=== PATIENT | female | born 1960 | race Hispanic/Latino ===

== ENCOUNTER 2016-06-04 10:58 | Emergency (ER) | payer MEDICARE ==
[2016-06-04 11:47] VITALS: BP 127/55
--- NOTE | 2016-06-04 13:17 | Emergency Department Report ---
ED Extremity Problem HPI - General Chief complaint: Extremity Injury, Upper Stated complaint: POSS BROKEN LT WRIST Time Seen by Provider: 06/04/16 12:50 Source: patient Mode of arrival: Ambulatory Limitations: No Limitations - History of Present Illness Initial comments: PT states last night, she was walking in living room with cane and she was going to pull the long curtains. PT states while she was pulling on curtains, she tripped over shoes that were left on the ground and she fell backwards. PT denies hi, or loc. PT states she is on oxycodone for knee pain currently MD Complaint: extremity pain, joint paint Onset/Timin -: Sudden, days(s) Location: left, upper extremity History of Same: No Severity scale (0 -10): 10 Quality: sharp Consistency: constant Improves with: nothing Worsens with: other (movement ) Associated Symptoms: denies: chest pain, shortness of breath - Related Data Home Medications Medication Instructions Recorded Confirmed Last Taken Buspar 10 mg PO BID 03/12/16 03/12/16 Unknown Depakote 500 mg PO DAILY 03/12/16 03/12/16 Unknown Enalapril Maleate 10 mg PO BID 03/12/16 03/12/16 Unknown Paxil 10 mg PO DAILY 03/12/16 03/12/16 Unknown Xanax TAB 1 mg PO TID 03/12/16 03/12/16 Unknown oxyCODONE TAB 30 mg PO PRN 03/12/16 03/12/16 Unknown Allergies Allergy/AdvReac Type Severity Reaction Status Date / Time aspirin Allergy Nausea Verified 03/12/16 17:45 codeine Allergy Nausea Verified 03/12/16 18:19 ED Review of Systems ROS: Stated complaint: POSS BROKEN LT WRIST Other details as noted in HPI Comment: All other systems reviewed and negative Cardiovascular: denies: chest pain, syncope Musculoskeletal: joint swelling Skin: other (bruising ) ED Past Medical Hx - Past Medical History Hx Hypertension: Yes Hx Congestive Heart Failure: No Hx Diabetes: No Hx Psychiatric Treatment: Yes Hx Asthma: No Hx COPD: No Additional medical history: Mitral valve prolapse - Surgical History Hx Coronary Stent: No Hx Open Heart Surgery: No Hx Pacemaker: No Hx Internal Defibrillator: No Hx Cholecystectomy: No Hx Appendectomy: No Hx Breast Surgery: No Additional Surgical History: Rhinoplasty, 2, tonsillectomy - Social History Smoking Status: Current Every Day Smoker Substance Use Type: None - Medications Home Medications: Home Medications Medication Instructions Recorded Confirmed Last Taken Type Buspar 10 mg PO BID 03/12/16 03/12/16 Unknown History Depakote 500 mg PO DAILY 03/12/16 03/12/16 Unknown History Enalapril Maleate 10 mg PO BID 03/12/16 03/12/16 Unknown History Paxil 10 mg PO DAILY 03/12/16 03/12/16 Unknown History Xanax TAB 1 mg PO TID 03/12/16 03/12/16 Unknown History oxyCODONE TAB 30 mg PO PRN 03/12/16 03/12/16 Unknown History ED Physical Exam - General Limitations: No Limitations General appearance: alert, in no apparent distress - Head Head exam: Present: atraumatic, normocephalic - Eye Eye exam: Present: normal appearance. Absent: conjunctival injection - ENT ENT exam: Present: normal exam - Neck Neck exam: Present: normal inspection, full ROM - Respiratory Respiratory exam: Present: normal lung sounds bilaterally. Absent: respiratory distress - Cardiovascular Cardiovascular Exam: Present: regular rate, normal rhythm - GI/Abdominal GI/Abdominal exam: Present: soft. Absent: tenderness - Extremities Exam Extremities exam: Present: tenderness, normal capillary refill, joint swelling - Expanded Upper Extremity Exam Left Forearm Wrist exam: Present: tenderness, swelling, ecchymosis, other (decreased ROM to L wrist, + edema+ bruising, + tenderness ). Absent: dislocation, tenderness over anatomical snuff box Vascular: Present: radial pulse (+2). Absent: vascular compromise - Back Exam Back exam: Present: full ROM. Absent: tenderness - Neurological Exam Neurological exam: Present: alert, oriented X3 - Psychiatric Psychiatric exam: Present: normal affect, normal mood - Skin Skin exam: Present: warm, dry, ecchymosis ED Course Vital Signs 06/04/16 11:45 Temperature 98.1 F Pulse Rate 77 Respiratory 20 Rate Blood Pressure 127/55 O2 Sat by Pulse 98 Oximetry - Reevaluation(s) Reevaluation #1: 06/04/16 14:31 Nursing staff placed pt in splint. PT NVI. PT aware of dx and plan of care. PT offered RX for Motrin but she declined. PT states she can not take Motrin because it hurts her abd. - Pulse Oximetry Interpretation Digit-Finger Initial Pulse Oximetry Readin Actions Taken: none ED Medical Decision Making - Radiology Data Radiology results: image reviewed interpreted by me: radial fx - Differential Diagnosis fracture, contusion Critical care attestation.: If time is entered above; I have spent that time in minutes in the direct care of this critically ill patient, excluding procedure time. ED Disposition Clinical Impression: Left radial fracture Qualifiers: Encounter type: initial encounter Radius location: distal Fracture type: closed Fracture morphology: unspecified fracture morphology Qualified Code(s): S52.502A - Unspecified fracture of the lower end of left radius, initial encounter for closed fracture Disposition: DISCHARGED TO HOME OR SELFCARE Is pt being admited?: No Does the pt Need Aspirin: No Condition: Stable Instructions: Wrist Fracture in Adults (ED), Splint Care (ED), RICE Therapy (ED ) Referrals: PRIMARY CAREMD [Primary Care Provider] - 3-5 Days JOSELYN TREVINO MD [Staff Physician] - 3-5 Days Time of Disposition: 14:32
--- NOTE | 2016-06-04 13:49 | XRay Report ---
Left wrist 3 views: History: Rule out fracture. Findings: There is a subarticular fracture noted at the distal radius, radial aspect, with extension to the articular margin. The carpal bones appears unremarkable. Severe arthritic changes are noted at the first carpometacarpal joint and the second carpometacarpal joint. Impression: Fracture distal radius.
[2016-06-04] MEDS ORDERED: PERCOCET 5/325 PO ONE (14:09)
== END 2016-06-04 14:37 | disposition home or self-care (01) ==
LOC: ED 10:58
DX: S52.502A Unspecified fracture of the lower end of left radius, initial encounter for closed fracture (principal); I10 Essential (primary) hypertension; F17.200 Nicotine dependence, unspecified, uncomplicated; W01.0XXA Fall on same level from slipping, tripping and stumbling without subsequent striking against object, initial encounter; Y93.9 Activity, unspecified; Y92.9 Unspecified place or not applicable; Y99.9 Unspecified external cause status
CPT/HCPCS: 99283

== ENCOUNTER 2016-08-14 12:46 | Emergency (ER) | payer MEDICARE ==
[2016-08-14 14:17] LABS: Basophils % (Auto) 0.3 % (0.0-1.8); Hematocrit 32.7 % (30.3-42.9); Hemoglobin 11.1 gm/dl (10.1-14.3); Mean Corpuscular HGB Conc 34 % (30-34); Mean Corpuscular Hemoglobin 32 pg (28-32); Mean Corpuscular Volume 93 fl (79-97); Platelet Count 216 K/mm3 (140-440); Red Blood Count 3.53 M/mm3 (3.65-5.03); Red Cell Distribution Width 13.5 % (13.2-15.2); White Blood Count 6.9 K/mm3 (4.5-11.0)
[2016-08-14 14:32] LABS: Alanine Aminotransferase 6 units/L (7-56); Albumin 3.6 g/dL (3.9-5); Albumin/Globulin Ratio 1.3 %; Alkaline Phosphatase 70 units/L (35-129); Anion Gap 16 mmol/L; BUN/Creatinine Ratio 28.57; Blood Urea Nitrogen 20 mg/dL (7-17); Calcium 9.6 mg/dL (8.4-10.2); Carbon Dioxide 30 mmol/L (22-30); Chloride 100.6 mmol/L (98-107); Glucose 80 mg/dL (65-100); Potassium 4.4 mmol/L (3.6-5.0); Sodium 142 mmol/L (137-145); Total Protein 6.3 g/dL (6.3-8.2)
[2016-08-14 20:18] VITALS: BP 111/53
--- NOTE | 2016-08-14 21:02 | Emergency Department Report ---
HPI - General Chief Complaint: Extremity Problem,Nontraumatic Time Seen by Provider: 08/14/16 20:52 - HPI HPI: Room 5 The patient is a 56-year-old female presenting with a chief complaint of bilateral lower extremity edema. The patient states over the past 4 or 5 days she has noticed worsening edema of both lower extremities. Patient denies any preceding trauma. Patient denies any other complaints except for painful swallowing. The patient has had a similar episode in the past but has never been given a diagnosis Location: Bilateral lower extremities Duration: 4-5 days Quality: Pain Severity: Moderate Modifying factors: [see above] Context: [see above] Mode of transportation: Unknown ED Past Medical Hx - Past Medical History Hx Hypertension: Yes (Takes BP meds as needed) Hx Psychiatric Treatment: Yes (Bipolar) Additional medical history: Mitral valve prolapse - Surgical History Additional Surgical History: Rhinoplasty, 2, tonsillectomy - Family History Family history: no significant - Social History Smoking Status: Current Every Day Smoker (one pack per day) Substance Use Type: None - Medications Home Medications: Home Medications Medication Instructions Recorded Confirmed Last Taken Type Buspar 10 mg PO BID 03/12/16 03/12/16 Unknown History Depakote 500 mg PO DAILY 03/12/16 03/12/16 Unknown History Enalapril Maleate 10 mg PO BID 03/12/16 03/12/16 Unknown History Paxil 10 mg PO DAILY 03/12/16 03/12/16 Unknown History Xanax TAB 1 mg PO TID 03/12/16 03/12/16 Unknown History oxyCODONE TAB 30 mg PO PRN 03/12/16 03/12/16 Unknown History Furosemide [Lasix] 20 mg PO QDAY #7 tablet 08/14/16 Unknown Rx HYDROcodone/APAP 5-325 [[place] 1 - 2 each PO Q6HR PRN #7 tablet 08/14/16 Unknown Rx 5/325] ED Review of Systems ROS: Stated complaint: R/L LEG/FOOT/SWELLING PAIN Other details as noted in HPI Comment: All other systems reviewed and negative Constitutional: denies: chills, fever Eyes: denies: eye pain, eye discharge, vision change ENT: denies: ear pain, throat pain Respiratory: denies: cough, shortness of breath, wheezing Cardiovascular: denies: chest pain, palpitations Endocrine: no symptoms reported Gastrointestinal: denies: abdominal pain, nausea, diarrhea Genitourinary: denies: urgency, dysuria, discharge Musculoskeletal: myalgia Skin: denies: rash, lesions Neurological: denies: headache, weakness, paresthesias Psychiatric: denies: anxiety, depression Hematological/Lymphatic: denies: easy bleeding, easy bruising Physical Exam - Physical Exam Vital Signs: Vital Signs 08/14/16 08/14/16 13:13 20:17 Temperature 97.7 F 97.7 F Pulse Rate 74 69 Respiratory 20 20 Rate Blood Pressure 108/60 Blood Pressure 111/53 [Left] O2 Sat by Pulse 100 100 Oximetry Physical Exam: GENERAL: The patient is well-developed well-nourished female lying on stretcher not appearing to be in acute distress. [] HEENT: Normocephalic. Atraumatic. Extraocular motions are intact. Patient has moist mucous membranes. NECK: Supple. Trachea midline CHEST/LUNGS: Clear to auscultation. There is no respiratory distress noted. HEART/CARDIOVASCULAR: Regular. There is no tachycardia. There is no gallop rub or murmur. ABDOMEN: Abdomen is soft, nontender. Patient has normal bowel sounds. There is no abdominal distention. SKIN: There is no rash. There is 2+ bilateral lower extremity edema. There is no diaphoresis. NEURO: The patient is awake, alert, and oriented. The patient is cooperative. The patient has normal speech MUSCULOSKELETAL: There is no evidence of acute injury. ED Course Vital Signs 08/14/16 08/14/16 13:13 20:17 Temperature 97.7 F 97.7 F Pulse Rate 74 69 Respiratory 20 20 Rate Blood Pressure 108/60 Blood Pressure 111/53 [Left] O2 Sat by Pulse 100 100 Oximetry ED Medical Decision Making - Lab Data Result diagrams: 08/14/16 13:51 08/14/16 13:51 Laboratory Tests 08/14/16 08/14/16 13:51 13:51 WBC 6.9 RBC 3.53 L Hgb 11.1 Hct 32.7 MCV 93 MCH 32 MCHC 34 RDW 13.5 Plt Count 216 Lymph % (Auto) 52.9 H Brown % (Auto) 8.9 H Eos % (Auto) 2.0 Baso % (Auto) 0.3 Lymph # 3.6 Brown # 0.6 Eos # 0.1 Baso # 0.0 Seg Neutrophils % 35.9 L Seg Neutrophils # 2.5 Sodium 142 Potassium 4.4 Chloride 100.6 Carbon Dioxide 30 Anion Gap 16 BUN 20 H Creatinine 0.7 Estimated GFR > 60 BUN/Creatinine Ratio 28.57 Glucose 80 Calcium 9.6 Total Bilirubin 0.30 AST 17 ALT 6 L Alkaline Phosphatase 70 NT-Pro-B Natriuret Pep 300.6 Total Protein 6.3 Albumin 3.6 L Albumin/Globulin Ratio 1.3 - Differential Diagnosis peripheral edema, CHF, hypoalbuminemia, renal failure Critical care attestation.: If time is entered above; I have spent that time in minutes in the direct care of this critically ill patient, excluding procedure time. ED Disposition Clinical Impression: Bilateral lower extremity edema, Bilateral leg pain Disposition: DISCHARGED TO HOME OR SELFCARE Is pt being admited?: No Does the pt Need Aspirin: No Condition: Stable Instructions: Leg Edema (ED) Additional Instructions: Return to the emergency department immediately should you develop worsening symptoms, fever, inability to tolerate food or liquid or any other concerns. Prescriptions: Furosemide [Lasix] 20 mg PO QDAY #7 tablet HYDROcodone/APAP 5-325 [[place] 5/325] 1 - 2 each PO Q6HR PRN #7 tablet PRN Reason: Pain Referrals: PRIMARY CARE, [Primary Care Provider] - 3-5 Days UCHE SOSA MD [Staff Physician] - 3-5 Days (Dr. Sosa is a primary physician. Please follow up with her to be established as a patient.) IMAN CASTELLON MD [Staff Physician] - 3-5 Days (Dr. Castellon is a vascular surgeon. Please follow up with him for further evaluation) Time of Disposition: 21:07
== END 2016-08-14 21:46 | disposition home or self-care (01) ==
LOC: ED 12:46
DX: R60.0 Localized edema (principal); M79.605 Pain in left leg; M79.604 Pain in right leg; I10 Essential (primary) hypertension; F31.9 Bipolar disorder, unspecified; Z90.89 Acquired absence of other organs; F17.200 Nicotine dependence, unspecified, uncomplicated
CPT/HCPCS: 36415; 80053; 83880; 85025; 99283

== ENCOUNTER 2018-04-21 18:16 | Emergency (ER) | payer MEDICARE ==
[2018-04-21 18:57] VITALS: BP 145/82
--- NOTE | 2018-04-21 22:37 | Emergency Department Report ---
ED General Adult HPI - General Chief complaint: Extremity Injury, Lower Stated complaint: LEGS PAIN/DIFFICULTY URINATING/SOB Time Seen by Provider: 04/21/18 22:14 Source: patient Mode of arrival: Ambulatory Limitations: No Limitations - History of Present Illness Initial comments: Patient is a 58-year-old female that presents emergency room with complaints of bilateral knee pain. Patient states she's had chronic knee pain for multiple years and is seeing pain management and is taking oxycodone for her pain. Patient states the pain is worsening. Patient states the pain is worsening over the last 4 days. Patient states walking a lot due to her having a special needs child. Patient complains of urinary frequency and dysuria. Patient denies abd ominal pain. Patient denies shortness of breath. Patient denies chest pain. Patient denies nausea vomiting. Patient denies fever or chills. Patient states she wants some more pain medications for her knees. -: Gradual, Sudden Quality: constant, other (chronic knee pain) Consistency: constant Improves with: medication, rest Worsens with: movement Associated Symptoms: denies: confusion, chest pain, cough, diaphoresis, fever/chills, headaches, loss of appetite, malaise, nausea/vomiting, rash, seizure, shortness of breath, syncope, weakness Treatments Prior to Arrival: other (chronic pain meds. ) - Related Data Home Medications Medication Instructions Recorded Confirmed Last Taken Buspar 10 mg PO BID 03/12/16 03/12/16 Unknown Depakote 500 mg PO DAILY 03/12/16 03/12/16 Unknown Enalapril Maleate 10 mg PO BID 03/12/16 03/12/16 Unknown Paxil 10 mg PO DAILY 03/12/16 03/12/16 Unknown Xanax TAB 1 mg PO TID 03/12/16 03/12/16 Unknown oxyCODONE TAB 30 mg PO PRN 03/12/16 03/12/16 Unknown Previous Rx's Medication Instructions Recorded Last Taken Type Furosemide [Lasix] 20 mg PO QDAY #7 tablet 08/14/16 Unknown Rx HYDROcodone/APAP 5-325 [[place] 1 - 2 each PO Q6HR PRN #7 tablet 08/14/16 Unknown Rx 5/325] Ciprofloxacin HCl [Cipro] 500 mg PO BID 10 Days #20 tablet 04/22/18 Unknown Rx Allergies Allergy/AdvReac Type Severity Reaction Status Date / Time aspirin Allergy Nausea Verified 03/12/16 17:45 codeine Allergy Nausea Verified 03/12/16 18:19 ED Review of Systems ROS: Stated complaint: LEGS PAIN/DIFFICULTY URINATING/SOB Other details as noted in HPI Constitutional: denies: chills, fever Eyes: denies: eye pain, eye discharge, vision change ENT: denies: ear pain, throat pain Respiratory: denies: cough, shortness of breath, wheezing Cardiovascular: denies: chest pain, palpitations Endocrine: no symptoms reported Gastrointestinal: denies: abdominal pain, nausea, diarrhea Genitourinary: urgency, dysuria, frequency. denies: discharge Musculoskeletal: denies: back pain, joint swelling, arthralgia Skin: denies: rash, lesions Neurological: denies: headache, weakness, paresthesias Psychiatric: denies: anxiety, depression Hematological/Lymphatic: denies: easy bleeding, easy bruising ED Past Medical Hx - Past Medical History Previous Medical History?: Yes Hx Hypertension: Yes (Takes BP meds as needed) Hx Congestive Heart Failure: No Hx Diabetes: No Hx Psychiatric Treatment: Yes (Bipolar) Hx Asthma: No Hx COPD: No Additional medical history: Mitral valve prolapse. bilateral torn meniscus. acute panic disorder. 2 torn ligaments in right knee - Surgical History Past Surgical History?: Yes Hx Coronary Stent: No Hx Open Heart Surgery: No Hx Pacemaker: No Hx Internal Defibrillator: No Hx Cholecystectomy: No Hx Appendectomy: No Hx Breast Surgery: No Additional Surgical History: Rhinoplasty, 2, tonsillectomy - Family History Family history: no significant - Social History Smoking Status: Current Every Day Smoker Substance Use Type: None - Medications Home Medications: Home Medications Medication Instructions Recorded Confirmed Last Taken Type Buspar 10 mg PO BID 03/12/16 03/12/16 Unknown History Depakote 500 mg PO DAILY 03/12/16 03/12/16 Unknown History Enalapril Maleate 10 mg PO BID 03/12/16 03/12/16 Unknown History Paxil 10 mg PO DAILY 03/12/16 03/12/16 Unknown History Xanax TAB 1 mg PO TID 03/12/16 03/12/16 Unknown History oxyCODONE TAB 30 mg PO PRN 03/12/16 03/12/16 Unknown History Furosemide [Lasix] 20 mg PO QDAY #7 tablet 08/14/16 Unknown Rx HYDROcodone/APAP 5-325 [[place] 1 - 2 each PO Q6HR PRN #7 tablet 08/14/16 Unknown Rx 5/325] Ciprofloxacin HCl [Cipro] 500 mg PO BID 10 Days #20 tablet 04/22/18 Unknown Rx ED Physical Exam - General Limitations: No Limitations General appearance: alert, in no apparent distress, obese - Head Head exam: Present: atraumatic, normocephalic - Eye Eye exam: Present: normal appearance - ENT ENT exam: Present: mucous membranes moist - Neck Neck exam: Present: normal inspection - Respiratory Respiratory exam: Present: normal lung sounds bilaterally. Absent: respiratory distress - Cardiovascular Cardiovascular Exam: Present: regular rate, normal rhythm. Absent: systolic murmur, diastolic murmur, rubs, gallop - GI/Abdominal GI/Abdominal exam: Present: soft, normal bowel sounds. Absent: distended, tenderness, guarding, rebound - Extremities Exam Extremities exam: Present: normal inspection - Back Exam Back exam: Present: normal inspection - Neurological Exam Neurological exam: Present: alert, oriented X3 - Psychiatric Psychiatric exam: Present: normal affect, normal mood - Skin Skin exam: Present: warm, dry, intact, normal color. Absent: rash ED Course Vital Signs 04/21/18 18:48 Temperature 97.5 F L Pulse Rate 75 Respiratory 18 Rate Blood Pressure 145/82 O2 Sat by Pulse 96 Oximetry - Reevaluation(s) Reevaluation #1: Discussed all results with patient. Patient states her pain is better. Patient agrees with discharge planning and plan of care. Patient to be discharged home. Patient stable for discharge. Patient will be given Rocephin and Solu- Medrol for her pain and UTI. Patient will be given antibiotics for fracture. Patient given discharge instructions. Patient given return to ER instructions. Patient given medication instructions. Patient voiced understanding of all instructions. 04/22/18 00:49 ED Medical Decision Making - Medical Decision Making Patient is a 58-year-old female that presents emergency room with chronic knee pain. Patient states her oxycodone is not working and wants more pain medications. Patient given Dilaudid for her knee pain which improved her knee pain. Patient also complained of urinary symptoms and was found to have a UTI. Patient given antibiotics. Patient also given Solu-Medrol to help her knee pain. Patient stable for discharge. Patient discharged home - Differential Diagnosis chronic pain. Knee pain. UTI. Dysuria. Critical care attestation.: If time is entered above; I have spent that time in minutes in the direct care of this critically ill patient, excluding procedure time. ED Disposition Clinical Impression: Chronic knee pain Qualifiers: Laterality: bilateral Qualified Code(s): M25.561 - Pain in right knee UTI (urinary tract infection) Qualifiers: Urinary tract infection type: acute cystitis Hematuria presence: with hematuria Qualified Code(s): N30.01 - Acute cystitis with hematuria HTN (hypertension) Qualifiers: Hypertension type: essential hypertension Qualified Code(s): I10 - Essential (primary) hypertension Disposition: TO HOME OR SELFCARE Is pt being admited?: No Does the pt Need Aspirin: No Condition: Stable Instructions: Urinary Tract Infection in Women (ED), Chronic Pain (ED), Knee Pain (ED), Hypertension (ED) Additional Instructions: Patient to follow up with primary care in 2-3 days. Patient to follow up with pain management in 2 - 3 days. Patient to return to ER if condition worsens. Patient to rest. Patient to continue all medications. Patient's take new medicines as directed. Increase water. Patient's take Tylenol when necessary for pain. Prescriptions: Ciprofloxacin HCl [Cipro] 500 mg PO BID 10 Days #20 tablet Referrals: BRITT BELLAMY MD [Primary Care Provider] - 3-5 Days Time of Disposition: 00:44
[2018-04-21] MEDS ORDERED: DILAUDID IV ONE (23:51)
[2018-04-22 00:25] LABS: Bacteria,Urine 1+ /HPF (Negative); Bilirubin,Urine NEG (Negative); Blood,Urine NEG (Negative); Calcium Oxalate Crystals,Urine FEW; Color,Urine Yellow (Yellow); Mucus,Urine FEW /HPF; Protein,Urine <15 mg/dL mg/dL (Negative)
[2018-04-22] MEDS ORDERED: SOLU-Medrol IV ONE (00:42)
[2018-04-22] MEDS ORDERED: ROCEPHIN/NS 1 GM/50 ML 1 GM/50 ML BAG IV ONE (00:42)
== END 2018-04-22 01:46 | disposition home or self-care (01) ==
LOC: ED 18:16
DX: G89.29 Other chronic pain (principal); M25.562 Pain in left knee; M25.561 Pain in right knee; N39.0 Urinary tract infection, site not specified; I10 Essential (primary) hypertension; F31.9 Bipolar disorder, unspecified; F17.200 Nicotine dependence, unspecified, uncomplicated; Z90.89 Acquired absence of other organs; Z88.6 Allergy status to analgesic agent; Z88.5 Allergy status to narcotic agent
CPT/HCPCS: 81001; 96365; 96375; 99283; J0696; J1170; J2930

== ENCOUNTER 2018-07-03 11:23 | Emergency (ER) | payer MEDICARE ==
[2018-07-03 11:45] VITALS: BP 106/53
--- NOTE | 2018-07-03 11:52 | Emergency Department Report ---
Blank Doc - Documentation Documentation: This is a 58-year-old female that presents with bilateral leg swelling and pain. Denies any trauma. This initial assessment/diagnostic orders/clinical plan/treatment(s) is/are subject to change based on patient's health status, clinical progression and re- assessment by fellow clinical providers in the ED. Further treatment and workup at subsequent clinical providers discretion. Patient/guardians urged not to elope from the ED as their condition may be serious if not clinically assessed and managed. Initial orders include: 1- Patient sent to MAIN ED for further evaluation and treatment 2- labs
[2018-07-03 12:41] LABS: Basophils % (Auto) 0.3 % (0.0-1.8); Eosinophils # (Auto) 0.1 K/mm3 (0.0-0.4); Eosinophils % (Auto) 1.1 % (0.0-4.3); Hemoglobin 12.3 gm/dl (10.1-14.3); Lymphocytes # (Auto) 2.4 K/mm3 (1.2-5.4); Lymphocytes % (Auto) 36.1 % (13.4-35.0); Mean Corpuscular HGB Conc 34 % (30-34); Mean Corpuscular Volume 95 fl (79-97); Monocytes # (Auto) 0.6 K/mm3 (0.0-0.8); Monocytes % (Auto) 8.6 % (0.0-7.3); Platelet Count 159 K/mm3 (140-440)
[2018-07-03 12:57] LABS: BUN/Creatinine Ratio 13; Blood Urea Nitrogen 8 mg/dL (7-17); Hemolysis Index 6
== END 2018-07-03 11:55 | disposition left against medical advice (07) ==
LOC: ED 11:23
DX: M79.605 Pain in left leg (principal); M79.89 Other specified soft tissue disorders; Z53.21 Procedure and treatment not carried out due to patient leaving prior to being seen by health care provider
CPT/HCPCS: 36415; 80048; 82550; 83880; 85025

== ENCOUNTER 2020-10-17 16:33 | Observation (INO) | payer MEDICARE ==
[2020-10-18] MEDS ORDERED: SODIUM CHLORIDE 0.9% 1000 ML 1,000 ML IV ONE (02:32)
--- NOTE | 2020-10-18 02:41 | Emergency Department Report ---
- General Chief complaint: Fall Stated complaint: HIP PAIN, HTN, EYES HURTING PUI?: No Time Seen by Provider: 10/18/20 02:30 Source: patient, EMS Mode of arrival: Wheelchair Limitations: Physical Limitation - History of Present Illness Initial comments: Patient is a 61-year-old female that presents emergency room with complaints of weakness, fall and hypotension. Patient states she also has having hip pain. Patient states is both hips. Patient states that she called EMS because she was feeling so weak and they found her blood pressure to be less than 100. Patient states her blood pressures normally 1 20-1 30 systolic blood pressure. Patient states she is on multiple times in the last several weeks. Patient denies chest pain. Patient denies shortness of breath. Patient states her weakness is generalized. Patient denies hitting her head. Patient denies loss of consciousness. Patient states she was diagnosed many years ago with hypertension but has not required any medications. Patient states she monitors her blood pressure regula rly. Patient denies recent travel. Patient denies recent international travel. Patient denies exposure to the novel coronavirus. Patient denies sick contacts. Patient denies fever and chills. Patient denies cough. Patient denies diarrhea. Patient denies coming in contact with anybody with symptoms of the novel coronavirus. MD Complaint: generalized weakness Severity scale (0 -10): 0 - Related Data Home Medications Medication Instructions Recorded Confirmed Last Taken Buspar 10 mg PO BID 03/12/16 03/12/16 Unknown Depakote 500 mg PO DAILY 03/12/16 03/12/16 Unknown Enalapril Maleate 10 mg PO BID 03/12/16 03/12/16 Unknown Paxil 10 mg PO DAILY 03/12/16 03/12/16 Unknown Xanax TAB 1 mg PO TID 03/12/16 03/12/16 Unknown oxyCODONE TAB 30 mg PO PRN 03/12/16 03/12/16 Unknown Previous Rx's Medication Instructions Recorded Last Taken Type Furosemide [Lasix] 20 mg PO QDAY #7 tablet 08/14/16 Unknown Rx HYDROcodone/APAP 5-325 [[place] 1 - 2 each PO Q6HR PRN #7 tablet 08/14/16 Unknown Rx 5/325] Ciprofloxacin HCl [Cipro] 500 mg PO BID 10 Days #20 tablet 04/22/18 Unknown Rx Allergies Allergy/AdvReac Type Severity Reaction Status Date / Time aspirin Allergy Nausea Verified 03/12/16 17:45 codeine Allergy Nausea Verified 03/12/16 18:19 ED Review of Systems ROS: Stated complaint: HIP PAIN, HTN, EYES HURTING Other details as noted in HPI Constitutional: denies: chills, fever Eyes: denies: eye pain, eye discharge, vision change ENT: denies: ear pain, throat pain Respiratory: denies: cough, shortness of breath, wheezing Cardiovascular: denies: chest pain, palpitations Endocrine: no symptoms reported Gastrointestinal: denies: abdominal pain, nausea, diarrhea Genitourinary: denies: urgency, dysuria, discharge Musculoskeletal: denies: back pain, joint swelling, arthralgia Skin: denies: rash, lesions Neurological: denies: headache, weakness, paresthesias Psychiatric: denies: anxiety, depression Hematological/Lymphatic: denies: easy bleeding, easy bruising ED Past Medical Hx - Past Medical History Previous Medical History?: Yes Hx Hypertension: Yes (Takes BP meds as needed) Hx Congestive Heart Failure: No Hx Diabetes: No Hx Psychiatric Treatment: Yes (Bipolar) Hx Asthma: No Hx COPD: No Additional medical history: Mitral valve prolapse. bilateral torn meniscus. acute panic disorder. 2 torn ligaments in right knee - Surgical History Past Surgical History?: Yes Hx Coronary Stent: No Hx Open Heart Surgery: No Hx Pacemaker: No Hx Internal Defibrillator: No Hx Cholecystectomy: No Hx Appendectomy: No Hx Breast Surgery: No Additional Surgical History: Rhinoplasty, 2, tonsillectomy - Family History Family history: no significant - Social History Smoking Status: Current Every Day Smoker Substance Use Type: None - Medications Home Medications: Home Medications Medication Instructions Recorded Confirmed Last Taken Type Buspar 10 mg PO BID 03/12/16 03/12/16 Unknown History Depakote 500 mg PO DAILY 03/12/16 03/12/16 Unknown History Enalapril Maleate 10 mg PO BID 03/12/16 03/12/16 Unknown History Paxil 10 mg PO DAILY 03/12/16 03/12/16 Unknown History Xanax TAB 1 mg PO TID 03/12/16 03/12/16 Unknown History oxyCODONE TAB 30 mg PO PRN 03/12/16 03/12/16 Unknown History Furosemide [Lasix] 20 mg PO QDAY #7 tablet 08/14/16 Unknown Rx HYDROcodone/APAP 5-325 [[place] 1 - 2 each PO Q6HR PRN #7 tablet 08/14/16 Unknown Rx 5/325] Ciprofloxacin HCl [Cipro] 500 mg PO BID 10 Days #20 tablet 04/22/18 Unknown Rx ED Physical Exam - General Limitations: Physical Limitation - Assessment Assessment Interval: Baseline - Level of Consciousness 1a. Level of Consciousness: alert/keenly responsive - LOC Questions 1b. LOC Questions: answers both correctly - LOC Command 1c. LOC Commands: performs tasks correctly - Best Gaze 2. Best Gaze: normal - Visual 3. Visual: no visual loss - Facial Palsy 4. Facial Palsy: normal symmetrical movement - Motor Arm 5a. Motor Arm Left: no drift 5b. Motor Arm Right: no drift - Motor Leg 6a. Motor Leg Left: no drift 6b. Motor Leg Right: no drift - Limb Ataxia 7. Limb Ataxia: absent - Sensory 8. Sensory: normal - Best Language 9. Best Language: no aphasia - Dysarthria 10. Dysarthria: normal - Extinction and Inattention 11. Extinction/Inattention: no abnormality - Scoring Total Score: 0 Stroke Severity: No Stroke Symptoms ED Course Vital Signs 10/17/20 10/18/20 17:52 02:09 Temperature 98.0 F 98.1 F Pulse Rate 74 71 Respiratory 18 12 Rate Blood Pressure 94/57 96/36 [Right] O2 Sat by Pulse 95 98 Oximetry - Reevaluation(s) Reevaluation #1: I discussed all results with patient. I discussed plan of care with patient. Patient agrees with plan of care and admission. Patient to be admitted to the hospitalist service. 10/18/20 04:06 - Consultations Consultation #1: Hospitalist consulted for admission. Hospitalist to admit patient. 10/18/20 04:06 ED Medical Decision Making - Lab Data Result diagrams: 10/18/20 02:39 10/18/20 02:39 - EKG Data -: EKG Interpreted by Me EKG shows normal: sinus rhythm, axis, intervals, QRS complexes, ST-T waves Rate: normal - Radiology Data Radiology results: report reviewed, image reviewed interpreted by me: Bilateral hip x-ray: No fracture, no acute findings. Head CT results reviewed. No acute findings - Medical Decision Making Patient is a 60-year-old female presents emergency room with low blood pressure and weakness and falls. Patient complained of hip pain. Patient had a hip x- ray negative for acute finding. Patient had a head CT for the weakness and head CT was negative for acute finding. Patient EKG which was negative for acute findings. Patient had labs done which were essentially unremarkable. Patient given IV fluids and her blood pressure improved. Patient admitted to the hospital service for further evaluation treatment. Critical care time documented due to the multiple reassessments, prolonged time at the bedside, interpretation of diagnostics and labs. - Differential Diagnosis Weakness, fall, hypotension, dehydration Critical Care Time: Yes Critical care time in (mins) excluding proc time.: 35 Critical care attestation.: If time is entered above; I have spent that time in minutes in the direct care of this critically ill patient, excluding procedure time. Critical Care Time: 35 minutes ED Disposition Clinical Impression: Weakness, Bilateral hip pain Hypotension Qualifiers: Hypotension type: unspecified hypotension type Qualified Code(s): I95.9 - Hypotension, unspecified Falls Qualifiers: Encounter type: initial encounter Qualified Code(s): W19.XXXA - Unspecified fall, initial encounter Disposition: -09 OP ADMIT IP TO THIS HOSP Is pt being admited?: Yes Does the pt Need Aspirin: No Condition: Critical Time of Disposition: 04:12
[2020-10-18 03:33] LABS: Hematocrit 36.2 % (30.3-42.9); Hemoglobin 12.3 gm/dl (10.1-14.3); Mean Corpuscular HGB Conc 34 % (30-34); Mean Corpuscular Volume 95 fl (79-97); Platelet Count 148 K/mm3 (140-440); Red Blood Count 3.81 M/mm3 (3.65-5.03); Red Cell Distribution Width 13.2 % (13.2-15.2)
--- NOTE | 2020-10-18 03:36 | XRay Report ---
BILATERAL HIPS 5 VIEWS INDICATION / CLINICAL INFORMATION: Bilateral hip pain after fall. COMPARISON: None available. FINDINGS: BONES and JOINT(S): No acute fracture or subluxation. 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 SOFT TISSUES: No significant abnormality. ADDITIONAL FINDINGS: None. IMPRESSION: 1. No acute findings. Signer Name: Ronni Love MD Signed: 10/18/2020 3:31 AM Workstation Name: [id number]
--- NOTE | 2020-10-18 03:47 | Cat Scan Report ---
CT HEAD WITHOUT CONTRAST INDICATION : Pt complains of weakness. TECHNIQUE: Axial, coronal and sagittal CT imaging was performed from the skull apex through the skul l base without contrast. All CT scans at this location are performed using CT dose reduction for ALA RA by means of automated exposure control. COMPARISON: CT head without contrast from 03/12/2016. FINDINGS: PARENCHYMA: No mass, midline shift, hemorrhage, extraaxial collection or acute territorial infarctio n. There is generalized atrophy. VENTRICLES: Symmetric and normal in size. SOFT TISSUES: No significant abnormality of the included soft tissues/orbits. BONES: No acute osseous abnormality. SINUSES: There is a small air-fluid level along the left maxillary sinus with mild mucosal thickening . No other significant abnormality. ADDITIONAL FINDINGS: None. IMPRESSION: 1. No acute intracranial abnormality. 2. Left maxillary sinusitis with additional findings as above. Signer Name: Ronni Love MD Signed: 10/18/2020 3:43 AM Workstation Name: [id number]
[2020-10-18 03:51] LABS: Alanine Aminotransferase 11 units/L (7-56); Albumin 3.8 g/dL (3.9-5); BUN/Creatinine Ratio 19; Blood Urea Nitrogen 15 mg/dL (7-17); Calcium 9.9 mg/dL (8.4-10.2); Hemolysis Index 5
[2020-10-18] MEDS ORDERED: HYDROcodone/ACETAMINOPHEN 5-325 MG TAB PO PRN (04:53)
[2020-10-18] MEDS ORDERED: ACETAMINOPHEN 325 MG TAB PO PRN (04:53)
[2020-10-18] MEDS ORDERED: METOCLOPRAMIDE 10 MG/2 ML INJ IV PRN (04:53)
[2020-10-18] MEDS ORDERED: ALUM-MAG HYDROXIDE-SIMETHICONE 200-200-20MG/5ML ORAL LIQD 30 ML PO PRN (04:53)
[2020-10-18] MEDS ORDERED: PROMETHAZINE 25 MG RECT SUPP PR PRN (04:53)
[2020-10-18] MEDS ORDERED: MAGNESIUM HYDROXIDE (MOM) ORAL LIQD UDC PO PRN (04:53)
[2020-10-18] MEDS ORDERED: ONDANSETRON 4 MG/2 ML INJ IV PRN (04:53)
[2020-10-18] MEDS ORDERED: NALOXONE 0.4 MG/1 ML INJ IV PRN (04:53)
[2020-10-18] MEDS ORDERED: SODIUM CHLORIDE 0.9% 1000 ML 1,000 ML IV SCH (05:00)
--- NOTE | 2020-10-18 05:01 | History and Physical Report ---
History of Present Illness Date of examination: 10/18/20 Date of admission: 10/18/20 04:12 Chief complaint: 10/18/20 History of present illness: Patient is a 61-year-old female that presents emergency room with complaints of weakness, fall and hypotension. Patient states she also has having hip pain. Patient states is both hips. Patient states that she called EMS because she was feeling so weak and they found her blood pressure to be less than 100. Patient states her blood pressures normally 1 20-1 30 systolic blood pressure. Patient states she is on multiple times in the last several weeks. Patient denies chest pain. Patient denies shortness of breath. Patient states her weakness is generalized. Patient denies hitting her head. Patient denies loss of consciousness. ED work-up shows WBC 5.9, hemoglobin 12.3, platelet 13.2, sodium 141, potassium 3.9, creatinine 0.8, serum glucose 120, serum protein 6.0. CT of the head showed no acute finding patient seen in ED alert oriented x3 patient reported history of dizziness weakness and fall. Patient admits to tobacco use but denies alcohol and drug use. Reviewed patient medical record vital signs and lab work results. Patient came with low blood pressure we will start IV hydration order echo and consulted sales promotion officer. Past History Past Medical History: hyperlipidemia, renal failure Past Surgical History: No surgical history Social history: no significant social history, lives with family, smoking Family history: no significant family history Medications and Allergies Allergies Allergy/AdvReac Type Severity Reaction Status Date / Time aspirin Allergy Nausea Verified 03/12/16 17:45 codeine Allergy Nausea Verified 03/12/16 18:19 Home Medications Medication Instructions Recorded Confirmed Last Taken Type Buspar 10 mg PO BID 03/12/16 03/12/16 Unknown History Depakote 500 mg PO DAILY 03/12/16 03/12/16 Unknown History Enalapril Maleate 10 mg PO BID 03/12/16 03/12/16 Unknown History Paxil 10 mg PO DAILY 03/12/16 03/12/16 Unknown History Xanax TAB 1 mg PO TID 03/12/16 03/12/16 Unknown History oxyCODONE TAB 30 mg PO PRN 03/12/16 03/12/16 Unknown History Furosemide [Lasix] 20 mg PO QDAY #7 tablet 08/14/16 Unknown Rx HYDROcodone/APAP 5-325 [[place] 1 - 2 each PO Q6HR PRN #7 tablet 08/14/16 Unknown Rx 5/325] Ciprofloxacin HCl [Cipro] 500 mg PO BID 10 Days #20 tablet 04/22/18 Unknown Rx Review of Systems Constitutional: fatigue, weakness Ears, nose, mouth and throat: vertigo Cardiovascular: syncope Respiratory: no wheezing Gastrointestinal: no melena Musculoskeletal: muscle weakness Neurological: weakness, no change in mentation, no confusion Psychiatric: no suicidal ideation, no disorientation Endocrine: no proptosis Hematologic/Lymphatic: no easy bruising, no easy bleeding Exam - Constitutional Vitals: Temp Pulse Resp BP Pulse Ox 98.1 F 65 18 96/36 92 10/18/20 02:09 10/18/20 03:00 10/18/20 03:00 10/18/20 03:00 10/18/20 03:00 General appearance: Present: no acute distress, obese - EENT Eyes: Present: PERRL ENT: hearing intact, clear oral mucosa - Neck Neck: Present: supple, normal ROM - Respiratory Respiratory effort: normal Respiratory: bilateral: CTA - Cardiovascular Heart Sounds: Present: S1 & S2. Absent: rub, click - Extremities Extremities: pulses symmetrical, No edema Peripheral Pulses: within normal limits - Abdominal General gastrointestinal: Present: soft, non-tender, non-distended, normal bowel sounds Female genitourinary: Present: normal - Integumentary Integumentary: Present: clear, warm, dry - Musculoskeletal Musculoskeletal: gait normal, strength equal bilaterally - Psychiatric Psychiatric: appropriate mood/affect, intact judgment & insight - Neurologic Neurologic: CNII-XII intact, moves all extremities - Allied Health Allied health notes reviewed: nursing Results - Labs CBC & Chem 7: 10/18/20 02:39 10/18/20 02:39 Labs: Abnormal lab results 10/18/20 Range/Units 02:39 Glucose 120 H (65-100) mg/dL Total Protein 6.0 L (6.3-8.2) g/dL Albumin 3.8 L (3.9-5) g/dL Assessment and Plan - Patient Problems (1) Hypotension Current Visit: Yes Status: Acute Qualifiers: Hypotension type: unspecified hypotension type Qualified Code(s): I95.9 - Hypotension, unspecified Plan to address problem: Likely secondary to dehydration Patient is on Lasix at home Continue to hold diuretic and bp med Cell Room Supervisor consult (2) Falls Current Visit: Yes Status: Acute Qualifiers: Encounter type: initial encounter Qualified Code(s): W19.XXXA - Unspecified fall, initial encounter Plan to address problem: Safety and fall precaution at all times CT of the head negative for acute finding (3) Weakness Current Visit: Yes Status: Acute Plan to address problem: IV hydration PT/Ot consult ECHO -f/u with result (4) Tobacco use Current Visit: Yes Status: Acute Plan to address problem: Discussed tobacco use cessation Cardiovascular and neoplasm syndrome of tobacco explained to patient Patient voiced understanding (5) DVT prophylaxis Current Visit: Yes Status: Acute Plan to address problem: Subcutaneous Lovenox (6) Full code status Current Visit: Yes Status: Acute Plan to address problem: Patient is full code
--- NOTE | 2020-10-18 09:10 | Consultation ---
History of Present Illness Consult date: 10/18/20 History of present illness: 60F with PMHx of tobacco abuse presents with complaint of weakness, fall, and low BP (reportedly less than 100). She denies any loss of consciousness. No CP or SOB. She was recently started on a new psych med on Tuesday, but she does not recall the name of the med. Initial recorded BP 96/36. Workup showed troponin x 1 negative, BNP normal, and no ischemic changes on EKG. Past History Past Medical History: hyperlipidemia, renal failure Past Surgical History: No surgical history Social history: no significant social history, lives with family, smoking Family history: no significant family history Medications and Allergies Allergies Allergy/AdvReac Type Severity Reaction Status Date / Time aspirin Allergy Nausea Verified 03/12/16 17:45 codeine Allergy Nausea Verified 03/12/16 18:19 Home Medications Medication Instructions Recorded Confirmed Last Taken Type Buspar 10 mg PO BID 03/12/16 03/12/16 Unknown History Depakote 500 mg PO DAILY 03/12/16 03/12/16 Unknown History Enalapril Maleate 10 mg PO BID 03/12/16 03/12/16 Unknown History Paxil 10 mg PO DAILY 03/12/16 03/12/16 Unknown History Xanax TAB 1 mg PO TID 03/12/16 03/12/16 Unknown History oxyCODONE TAB 30 mg PO PRN 03/12/16 03/12/16 Unknown History Furosemide [Lasix] 20 mg PO QDAY #7 tablet 08/14/16 Unknown Rx HYDROcodone/APAP 5-325 [[place] 1 - 2 each PO Q6HR PRN #7 tablet 08/14/16 Unknown Rx 5/325] Ciprofloxacin HCl [Cipro] 500 mg PO BID 10 Days #20 tablet 04/22/18 Unknown Rx Active Meds: Active Medications Acetaminophen (Acetaminophen 325 Mg Tab) 650 mg PO Q4H PRN PRN Reason: Pain MILD(1-3)/Fever >100.5/SEPULVEDA Al Hydrox/Mg Hydrox/Simethicone (Alum-Mag Hydroxide-Simethicone [id number]/5ml Oral Liqd 30 Ml) 30 ml PO Q4H PRN PRN Reason: Indigestion Buspirone HCl (Buspirone 10 Mg Tab) 10 mg PO BID NARCISO Divalproex Sodium (Divalproex Dr 500 Mg Tab) 500 mg PO DAILY NARCISO Enoxaparin Sodium (Enoxaparin 40 Mg/0.4 Ml Inj) 40 mg SUB-Q DAILY NARCISO; Protocol Famotidine (Famotidine 20 Mg/2 Ml Inj) 20 mg IV BID NARCISO Sodium Chloride (Nacl 0.9% 1000 Ml) 1,000 mls @ 75 mls/hr IV DIRECT NARCISO Magnesium Hydroxide (Magnesium Hydroxide (Mom) Oral Liqd Udc) 30 ml PO Q4H PRN PRN Reason: Constipation Metoclopramide HCl (Metoclopramide 10 Mg/2 Ml Inj) 10 mg IV Q6H PRN PRN Reason: Nausea And Vomiting Naloxone HCl (Naloxone 0.4 Mg/1 Ml Inj) 0.1 mg IV Q2MIN PRN PRN Reason: Res Rate </= 8 or 02 SAT < 92% Ondansetron HCl (Ondansetron 4 Mg/2 Ml Inj) 4 mg IV Q8H PRN PRN Reason: Nausea And Vomiting Promethazine HCl (Promethazine 25 Mg Rect Supp) 25 mg MN Q6H PRN PRN Reason: N/V IF NPO AND NO IV ACCESS Sodium Chloride (Sodium Chloride 0.9% 10 Ml Flush Syringe) 10 ml IV PRN PRN PRN Reason: LINE FLUSH Physical Examination Vital Signs Temp Pulse Resp BP Pulse Ox 98.0 F 74 18 94/57 95 10/17/20 17:52 10/17/20 17:52 10/17/20 17:52 10/17/20 17:52 10/17/20 17:52 Gen - NAD, comfortable HEENT- atraumatic, normocephalic Neck - supple, no JVD CV - RRR, no murmurs, no edema Lungs - CTAB Abd - soft/nt/nd, obese Ext - warm to touch, trace edema Skin - no rash Results 10/18/20 02:39 10/18/20 02:39 Cardiac Enzymes 10/18/20 Range/Units 02:39 AST 18 (5-40) units/L CBC 10/18/20 Range/Units 02:39 WBC 5.9 (4.5-11.0) K/mm3 RBC 3.81 (3.65-5.03) M/mm3 Hgb 12.3 (10.1-14.3) gm/dl Hct 36.2 (30.3-42.9) % Plt Count 148 (140-440) K/mm3 Comprehensive Metabolic Panel 10/18/20 Range/Units 02:39 Sodium 141 (137-145) mmol/L Potassium 3.9 (3.6-5.0) mmol/L Chloride 101.7 (98-107) mmol/L Carbon Dioxide 28 (22-30) mmol/L BUN 15 (7-17) mg/dL Creatinine 0.8 (0.6-1.2) mg/dL Glucose 120 H (65-100) mg/dL Calcium 9.9 (8.4-10.2) mg/dL AST 18 (5-40) units/L ALT 11 (7-56) units/L Alkaline Phosphatase 84 (35-129) units/L Total Protein 6.0 L (6.3-8.2) g/dL Albumin 3.8 L (3.9-5) g/dL Telemetry - SR, no events EKG - SR, no ischemic changes Assessment and Plan #Weakness #Hypotension - BP now improved #Fall - no LOC #Tobacco abuse #Obesity -Check orthostatics. -Agree with IVF hydration. Avoid sedating meds. Agree with holding lasix and BP meds. -Check echo. -Further cardiac workup pending echo findings. -Encourage smoking cessation.
[2020-10-18] MEDS ORDERED: HEPARIN 5,000 UNIT/1 ML VIAL SUB-Q SCH (10:00)
[2020-10-18] MEDS: busPIRone 10 MG TAB PO SCH ×2 (10:43→21:33)
[2020-10-18] MEDS: DIVALPROEX DR 500 MG TAB PO SCH (10:43)
[2020-10-18] MEDS: ENOXAPARIN 40 MG/0.4 ML INJ SUB-Q SCH (10:44)
[2020-10-18] MEDS: FAMOTIDINE 20 MG/2 ML INJ IV SCH ×2 (10:44→21:34)
--- NOTE | 2020-10-18 11:14 | Progress Note ---
Assessment and Plan Assessment and plan: 60F with PMHx of tobacco abuse admitted with diagnosis of generalized weakness, fall, and hypotension (reportedly less than 100). She denied any loss of consciousness. No CP or SOB. She was recently started on a new psych med on Tuesday, but she does not recall the name of the med. Initial recorded BP 96/36. Workup showed troponin negative, BNP normal, and no ischemic changes on EKG. Patient had orthostatic vital signs completed on 10/18/2020 that were normal. Cardiology saw the patient in consultation and recommended echocardiogram. Patient received IV fluid hydration and blood pressure stabilized. Generalized weakness Hypotension S/p fall. No LOC Tobacco abuse Obese 10/18/2020. Continue IV fluid hydration and follow-up BMP in a.m. Also, follow- up echocardiogram. Anticipate discharge in a.m. if blood pressure remains stable. History Interval history: No new issues overnight. Hospitalist Physical - Constitutional Vitals: Temp Pulse Resp BP Pulse Ox 97.3 F L 64 19 108/54 91 10/18/20 07:28 10/18/20 07:28 10/18/20 07:28 10/18/20 07:28 10/18/20 07:28 General appearance: Present: no acute distress, obese - EENT Eyes: Present: PERRL, EOM intact ENT: hearing intact, clear oral mucosa, dentition normal - Neck Neck: Present: supple, normal ROM - Respiratory Respiratory effort: normal Respiratory: bilateral: CTA - Cardiovascular Rhythm: regular Heart Sounds: Present: S1 & S2. Absent: gallop, rub - Extremities Extremities: no ischemia, No edema, Full ROM - Abdominal General gastrointestinal: soft, non-tender, non-distended, normal bowel sounds - Integumentary Integumentary: Present: clear, warm, dry - Neurologic Neurologic: CNII-XII intact, moves all extremities Results - Labs CBC & Chem 7: 10/18/20 02:39 10/18/20 02:39 Labs: Laboratory Last Values WBC 5.9 K/mm3 (4.5-11.0) 10/18/20 02:39 RBC 3.81 M/mm3 (3.65-5.03) 10/18/20 02:39 Hgb 12.3 gm/dl (10.1-14.3) 10/18/20 02:39 Hct 36.2 % (30.3-42.9) 10/18/20 02:39 MCV 95 fl (79-97) 10/18/20 02:39 MCH 32 pg (28-32) 10/18/20 02:39 MCHC 34 % (30-34) 10/18/20 02:39 RDW 13.2 % (13.2-15.2) 10/18/20 02:39 Plt Count 148 K/mm3 (140-440) 10/18/20 02:39 Sodium 141 mmol/L (137-145) 10/18/20 02:39 Potassium 3.9 mmol/L (3.6-5.0) 10/18/20 02:39 Chloride 101.7 mmol/L (98-107) 10/18/20 02:39 Carbon Dioxide 28 mmol/L (22-30) 10/18/20 02:39 Anion Gap 15 mmol/L 10/18/20 02:39 BUN 15 mg/dL (7-17) 10/18/20 02:39 Creatinine 0.8 mg/dL (0.6-1.2) 10/18/20 02:39 Estimated GFR > 60 ml/min 10/18/20 02:39 BUN/Creatinine Ratio 19 % 10/18/20 02:39 Glucose 120 mg/dL (65-100) H 10/18/20 02:39 Hemoglobin A1c 5.5 % (4-6) 10/18/20 02:39 Calcium 9.9 mg/dL (8.4-10.2) 10/18/20 02:39 Total Bilirubin 0.30 mg/dL (0.1-1.2) 10/18/20 02:39 AST 18 units/L (5-40) 10/18/20 02:39 ALT 11 units/L (7-56) 10/18/20 02:39 Alkaline Phosphatase 84 units/L (35-129) 10/18/20 02:39 Total Protein 6.0 g/dL (6.3-8.2) L 10/18/20 02:39 Albumin 3.8 g/dL (3.9-5) L 10/18/20 02:39 Albumin/Globulin Ratio 1.7 % 10/18/20 02:39 Anguiano/IV: Voiding Method Toilet Active Medications - Current Medications Current Medications: Generic Name Dose Route Start Last Admin Trade Name Freq PRN Reason Stop Dose Admin Acetaminophen 650 mg 10/18/20 04:53 Acetaminophen 325 Mg Tab PO Q4H PRN Pain MILD(1-3)/Fever >100.5/SEPULVEDA Al Hydrox/Mg Hydrox/Simethicone 30 ml 10/18/20 04:53 Alum-Mag Hydroxide-Simethicone [id number]/5ml Oral Liqd 30 Ml PO Q4H PRN Indigestion Buspirone HCl 10 mg 10/18/20 10:00 10/18/20 10:43 Buspirone 10 Mg Tab PO 10 mg BID NARCISO Administration Divalproex Sodium 500 mg 10/18/20 10:00 10/18/20 10:[address] 500 Mg Tab PO 500 mg DAILY NARCISO Administration Enoxaparin Sodium 40 mg 10/18/20 10:00 10/18/20 10:44 Enoxaparin 40 Mg/0.4 Ml Inj SUB-Q 40 mg DAILY NARCISO Administration Protocol Famotidine 20 mg 10/18/20 10:00 10/18/20 10:44 Famotidine 20 Mg/2 Ml Inj IV 20 mg BID NARCISO Administration Sodium Chloride 1,000 mls @ 75 mls/hr 10/18/20 05:00 Nacl 0.9% 1000 Ml IV DIRECT NARCISO Magnesium Hydroxide 30 ml 10/18/20 04:53 Magnesium Hydroxide (Mom) Oral Liqd Udc PO Q4H PRN Constipation Metoclopramide HCl 10 mg 10/18/20 04:53 Metoclopramide 10 Mg/2 Ml Inj IV Q6H PRN Nausea And Vomiting Naloxone HCl 0.1 mg 10/18/20 04:53 Naloxone 0.4 Mg/1 Ml Inj IV Q2MIN PRN Res Rate </= 8 or 02 SAT < 92% Ondansetron HCl 4 mg 10/18/20 04:53 Ondansetron 4 Mg/2 Ml Inj IV Q8H PRN Nausea And Vomiting Promethazine HCl 25 mg 10/18/20 04:53 Promethazine 25 Mg Rect Supp PA Q6H PRN N/V IF NPO AND NO IV ACCESS Sodium Chloride 10 ml 10/18/20 04:53 Sodium Chloride 0.9% 10 Ml Flush Syringe IV PRN PRN LINE FLUSH
[2020-10-19 06:01] LABS: Hematocrit 34.1 % (30.3-42.9); Hemoglobin 11.7 gm/dl (10.1-14.3); Mean Corpuscular HGB Conc 34 % (30-34); Mean Corpuscular Volume 94 fl (79-97); Platelet Count 148 K/mm3 (140-440); Red Blood Count 3.61 M/mm3 (3.65-5.03); Red Cell Distribution Width 13.1 % (13.2-15.2)
[2020-10-19 06:11] LABS: Alanine Aminotransferase 9 units/L (7-56); Albumin 3.4 g/dL (3.9-5); Blood Urea Nitrogen 8 mg/dL (7-17); Calcium 9.9 mg/dL (8.4-10.2); Hemolysis Index 3
[2020-10-19 06:12] LABS: BUN/Creatinine Ratio 13
[2020-10-19 06:45] LABS: Anisocytosis 1+; Total Cells Counted 100
[2020-10-19 06:46] LABS: Platelet Estimate Consistent w Auto
[2020-10-19 08:36] VITALS: BP 132/71
--- NOTE | 2020-10-19 09:16 | Discharge Summary ---
Providers - Providers Date of Admission: 10/18/20 04:12 Date of discharge: 10/19/20 Attending physician: DENNIS WALKER 10/18/20 04:53 Consult to Physician [CONS] Routine Comment: Consulting Provider: OPAL SOSA Physician Instructions: Reason For Exam: hypotension 10/18/20 05:50 Occupational Therapy Evaluate and Treat [CONS] Routine Comment: Reason For Exam: weakness Physical Therapy Evaluation and Treat [CONS] Routine Comment: Reason For Exam: weakness Primary care physician: CARLOS KAUFFMAN Hospitalization Reason for admission: Hypotension Condition: Critical Hospital course: 60F with PMHx of tobacco abuse admitted with diagnosis of generalized weakness, fall, and hypotension (reportedly less than 100). She denied any loss of consciousness. No CP or SOB. She was recently started on a new psych med on Tuesday, but she does not recall the name of the med. Initial recorded BP 96/36. Workup showed troponin negative, BNP normal, and no ischemic changes on EKG. Patient had orthostatic vital signs completed on 10/18/2020 that were normal. Cardiology saw the patient in consultation and recommended echocardiogram. Patient received IV fluid hydration and blood pressure stabilized. Blood pressure has remained stable. Patient wants to go home and therefore will complete echocardiogram as an outpatient. Dedicated discharge time 35 minutes. Disposition: DC- TO HOME OR SELFCARE Final Discharge Diagnosis (Prints w/discharge instructions): Generalized weakness, hypotension, tobacco abuse, obesity Core Measure Documentation - Palliative Care Palliative Care/ Comfort Measures: Not Applicable - Core Measures Any of the following diagnoses?: none Exam - Constitutional Vitals: Temp Pulse Resp BP Pulse Ox 97.4 F L 68 18 132/71 94 10/19/20 08:00 10/19/20 08:00 10/19/20 08:00 10/19/20 08:00 10/19/20 08:00 General appearance: Present: no acute distress, well-nourished - EENT Eyes: Present: PERRL ENT: hearing intact, clear oral mucosa - Neck Neck: Present: supple, normal ROM - Respiratory Respiratory effort: normal Respiratory: bilateral: CTA - Cardiovascular Heart Sounds: Present: S1 & S2. Absent: rub, click - Extremities Extremities: pulses symmetrical, No edema Peripheral Pulses: within normal limits - Abdominal General gastrointestinal: Present: soft, non-tender, non-distended, normal bowel sounds Female genitourinary: Present: normal - Integumentary Integumentary: Present: clear, warm, dry - Musculoskeletal Musculoskeletal: gait normal, strength equal bilaterally - Psychiatric Psychiatric: appropriate mood/affect, intact judgment & insight - Neurologic Neurologic: CNII-XII intact, moves all extremities Plan Activity: advance as tolerated Weight Bearing Status: Weight Bear as Tolerated Additional Instructions: Echocardiogram as an outpatient with cardiology Follow up with: CARLOS KAUFFMAN MD [Primary Care Provider] - 7 Days GRACE NORIEGA MD [Staff Physician] - 7 Days Prescriptions: Buspar 10 mg PO BID #60 Depakote 500 mg PO DAILY #30 HYDROcodone/APAP 5-325 [[place] 5-325 mg TAB] 1 - 2 each PO Q6HR PRN #7 tablet PRN Reason: Pain Paxil 10 mg PO DAILY #30 Xanax TAB 1 mg PO TID #30
[2020-10-19] MEDS: busPIRone 10 MG TAB PO SCH (10:33)
[2020-10-19] MEDS: ENOXAPARIN 40 MG/0.4 ML INJ SUB-Q SCH (10:33)
[2020-10-19] MEDS: DIVALPROEX DR 500 MG TAB PO SCH (10:33)
[2020-10-19] MEDS: FAMOTIDINE 20 MG/2 ML INJ IV SCH (10:33)
--- NOTE | 2020-10-19 10:51 | Progress Note ---
Assessment and Plan #Weakness #Hypotension - BP normal after IVFs, orthostatics negative 10/18/20 #Fall - no LOC #Tobacco abuse #Obesity -Avoid sedating meds. Agree with holding lasix and BP meds. -Echo read pending. -Further cardiac workup pending echo findings. -Advised smoking cessation. Subjective Date of service: 10/19/20 Interval history: No events. Orthostatics negative yesterday. No LH or weakness. Tele - SR, no events Objective Vital Signs Temp Pulse Resp BP BP Pulse Ox 10/19/20 08:00 97.4 F L 68 18 132/71 94 10/19/20 04:20 97.4 F L 65 20 133/60 96 10/18/20 23:10 97.3 F L 61 18 141/70 93 10/18/20 18:59 97.8 F 68 20 112/47 95 10/18/20 15:53 97.8 F 65 19 135/63 94 10/18/20 11:00 60 - Physical Examination Narrative exam: Gen - NAD, comfortable HEENT- atraumatic, normocephalic Neck - supple, no JVD CV - RRR, no murmurs, no edema Lungs - CTAB Abd - soft/nt/nd, obese Ext - warm to touch, trace edema Skin - no rash - Labs and Meds Cardiac Enzymes 10/19/20 Range/Units 05:11 AST 20 (5-40) units/L CBC 10/19/20 Range/Units 05:11 WBC 5.2 (4.5-11.0) K/mm3 RBC 3.61 L (3.65-5.03) M/mm3 Hgb 11.7 (10.1-14.3) gm/dl Hct 34.1 (30.3-42.9) % Plt Count 148 (140-440) K/mm3 Comprehensive Metabolic Panel 10/19/20 Range/Units 05:11 Sodium 143 (137-145) mmol/L Potassium 3.9 (3.6-5.0) mmol/L Chloride 105.5 (98-107) mmol/L Carbon Dioxide 29 (22-30) mmol/L BUN 8 (7-17) mg/dL Creatinine 0.6 (0.6-1.2) mg/dL Glucose 77 (65-100) mg/dL Calcium 9.9 (8.4-10.2) mg/dL AST 20 (5-40) units/L ALT 9 (7-56) units/L Alkaline Phosphatase 74 (35-129) units/L Total Protein 6.1 L (6.3-8.2) g/dL Albumin 3.4 L (3.9-5) g/dL
[2020-10-19] MEDS ORDERED: FAMOTIDINE 20 MG TAB PO SCH (22:00)
--- NOTE | 2020-10-20 11:41 | Electrocardiograph Report ---
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
== END 2020-10-19 11:05 | disposition home or self-care (01) ==
LOC: ED 16:33 → 4A 10-18 04:12
PROVIDERS: ADMIT Internal Medicine Geriatric Medicine; ATTEND Hospitalist
DX: I95.9 Hypotension, unspecified (principal); R53.1 Weakness; I10 Essential (primary) hypertension; N19 Unspecified kidney failure; E78.5 Hyperlipidemia, unspecified; E66.9 Obesity, unspecified; M25.552 Pain in left hip; M25.551 Pain in right hip; F17.210 Nicotine dependence, cigarettes, uncomplicated; Z79.899 Other long term (current) drug therapy; Z98.890 Other specified postprocedural states; Z98.891 History of uterine scar from previous surgery; Z68.41 Body mass index [BMI] 40.0-44.9, adult; W19.XXXA Unspecified fall, initial encounter; Y92.89 Other specified places as the place of occurrence of the external cause; Y93.89 Activity, other specified; Y99.8 Other external cause status
CPT/HCPCS: 36415; 70450; 73521; 80053; 83036; 85025; 85027; 93005; 93306; 96361; 96372; 96374; 97116; 97162; 99291; G0378; J1650; J7030; 80048; 85007

== ENCOUNTER 2021-07-23 17:38 | Emergency (ER) | payer MEDICARE ==
[2021-07-23] MEDS ORDERED: ONDANSETRON 4 MG/2 ML INJ IV ONE (20:43)
[2021-07-23] MEDS ORDERED: SODIUM CHLORIDE 0.9% 1000 ML 1,000 ML IV ONE (20:43)
--- NOTE | 2021-07-23 20:55 | Emergency Department Report ---
ED Abdominal Pain HPI - General Chief Complaint: Abdominal Pain Stated Complaint: BLOCKAGE IN BOWEL Time Seen by Provider: 07/23/21 20:42 Source: patient Mode of arrival: Wheelchair Limitations: No Limitations - History of Present Illness Initial Comments: Patient 61-year-old female who presents for generalized abdominal pain with nausea vomiting diarrhea and 1 episode of blood in stools today. Patient denies a history of hypertension no diabetes no GI bleed no Crohn's no diverticulitis. Patient denies smoking or substance. Symptoms are exacerbated by p.o. intake. Symptoms are relieved by nothing tried. Patient denies fevers or chills no cough no chest pain. MD Complaint: abdominal pain, flank pain - Related Data Home Medications Medication Instructions Recorded Confirmed Last Taken Enalapril Maleate 10 mg PO BID 03/12/16 10/18/20 Unknown Previous Rx's Medication Instructions Recorded Last Taken Type Furosemide [Lasix TAB] 20 mg PO QDAY #7 tablet 08/14/16 Unknown Rx Ciprofloxacin HCl [Cipro] 500 mg PO BID 10 Days #20 tablet 04/22/18 Unknown Rx Buspar 10 mg PO BID #60 10/19/20 Unknown Rx Depakote 500 mg PO DAILY #30 10/19/20 Unknown Rx HYDROcodone/APAP 5-325 [[place] 1 - 2 each PO Q6HR PRN #7 tablet 10/19/20 Unknown Rx 5-325 mg TAB] Paxil 10 mg PO DAILY #30 10/19/20 Unknown Rx Xanax TAB 1 mg PO TID #30 10/19/20 Unknown Rx bisacodyL [Dulcolax suppos] 10 mg RI QDAY PRN #5 supp.rect 07/24/21 Unknown Rx polyethylene glycoL 3350 [Miralax 17 gm PO BID PRN #14 packet 07/24/21 Unknown Rx 3350] Allergies Allergy/AdvReac Type Severity Reaction Status Date / Time aspirin Allergy Nausea Verified 03/12/16 17:45 codeine Allergy Nausea Verified 03/12/16 18:19 ED Review of Systems ROS: Stated complaint: BLOCKAGE IN BOWEL Other details as noted in HPI Constitutional: denies: chills, fever Eyes: denies: eye pain, eye discharge, vision change ENT: denies: ear pain, throat pain Respiratory: denies: cough, shortness of breath, wheezing Cardiovascular: denies: chest pain, palpitations Endocrine: no symptoms reported Gastrointestinal: abdominal pain, nausea, vomiting, diarrhea, melena. denies: constipation, hematemesis, hematochezia Genitourinary: denies: urgency, dysuria, frequency, hematuria, discharge Musculoskeletal: denies: back pain, joint swelling, arthralgia Skin: denies: rash, lesions Neurological: denies: headache, weakness, numbness, paresthesias, confusion, vertigo Psychiatric: denies: anxiety, depression Hematological/Lymphatic: denies: easy bleeding, easy bruising ED Past Medical Hx - Past Medical History Hx Hypertension: Yes (Takes BP meds as needed) Hx Congestive Heart Failure: No Hx Diabetes: No Hx Psychiatric Treatment: Yes (Bipolar) Hx Asthma: No Hx COPD: No Additional medical history: Mitral valve prolapse. bilateral torn meniscus. acute panic disorder. 2 torn ligaments in right knee - Surgical History Hx Coronary Stent: No Hx Open Heart Surgery: No Hx Pacemaker: No Hx Internal Defibrillator: No Hx Cholecystectomy: No Hx Appendectomy: No Hx Breast Surgery: No Additional Surgical History: Rhinoplasty, 2, tonsillectomy - Social History Smoking Status: Current Every Day Smoker Substance Use Type: None - Medications Home Medications: Home Medications Medication Instructions Recorded Confirmed Last Taken Type Enalapril Maleate 10 mg PO BID 03/12/16 10/18/20 Unknown History Furosemide [Lasix TAB] 20 mg PO QDAY #7 tablet 08/14/16 10/18/20 Unknown Rx Ciprofloxacin HCl [Cipro] 500 mg PO BID 10 Days #20 tablet 04/22/18 10/18/20 Unknown Rx Buspar 10 mg PO BID #60 10/19/20 Unknown Rx Depakote 500 mg PO DAILY #30 10/19/20 Unknown Rx HYDROcodone/APAP 5-325 [[place] 1 - 2 each PO Q6HR PRN #7 tablet 10/19/20 Unknown Rx 5-325 mg TAB] Paxil 10 mg PO DAILY #30 10/19/20 Unknown Rx Xanax TAB 1 mg PO TID #30 10/19/20 Unknown Rx bisacodyL [Dulcolax suppos] 10 mg RI QDAY PRN #5 supp.rect 07/24/21 Unknown Rx polyethylene glycoL 3350 [Miralax 17 gm PO BID PRN #14 packet 07/24/21 Unknown Rx 3350] ED Physical Exam - General Limitations: No Limitations General appearance: alert, in no apparent distress - Head Head exam: Present: atraumatic, normocephalic - Eye Eye exam: Present: normal appearance, EOMI Pupils: Present: normal accommodation - ENT ENT exam: Present: mucous membranes moist - Neck Neck exam: Present: normal inspection, full ROM. Absent: tenderness - Respiratory Respiratory exam: Present: normal lung sounds bilaterally. Absent: respiratory distress, wheezes, chest wall tenderness - Cardiovascular Cardiovascular Exam: Present: regular rate, normal rhythm, normal heart sounds. Absent: systolic murmur, diastolic murmur, rubs, gallop - GI/Abdominal GI/Abdominal exam: Present: soft, normal bowel sounds. Absent: distended, tenderness, guarding, rebound, rigid, bruit, hernia - Expanded GI/Abdominal Exam Expanded GI/Abdominal exam: Absent: psoas sign, obturator sign, heel tap sign, Keen's sign, Rovsing's sign, tenderness at Mcburney's Point, ascites - Rectal Rectal exam: Present: deferred - External exam: Present: normal external exam - Extremities Exam Extremities exam: Present: normal inspection, full ROM, normal capillary refill - Back Exam Back exam: Present: normal inspection, full ROM. Absent: CVA tenderness (R), CVA tenderness (L) - Neurological Exam Neurological exam: Present: alert, oriented X3, CN II-XII intact - Expanded Neurological Exam Expanded Patient oriented to: Present: person, place, time Speech: Present: fluid speech Motor strength exam: RUE: 5, LUE: 5, RLE: 5, LLE: 5 Best Eye Response ([place]): (4) open spontaneously Best Motor Response ([place]): (6) obeys commands Best Verbal Response ([place]): (5) oriented [place] Total: 15 - Psychiatric Psychiatric exam: Present: normal affect, normal mood - Skin Skin exam: Present: warm, dry, intact, normal color. Absent: rash ED Course Vital Signs 07/23/21 18:44 Temperature 98.9 F Pulse Rate 87 Respiratory 20 Rate Blood Pressure 145/60 O2 Sat by Pulse 98 Oximetry ED Medical Decision Making - Lab Data Result diagrams: 07/23/21 21:27 07/23/21 21:27 Labs 07/23/21 07/23/21 21:27 21:27 WBC 9.2 RBC 4.42 Hgb 14.0 Hct 40.8 MCV 92 MCH 32 MCHC 34 RDW 13.3 Plt Count 226 Lymph % (Auto) 48.8 H Mccreary % (Auto) 5.6 Eos % (Auto) 0.8 Baso % (Auto) Architect Manager Lymph # (Auto) 4.5 Mccreary # (Auto) 0.5 Eos # (Auto) 0.1 Baso # (Auto) 0.0 Seg Neutrophils % 44.4 Seg Neutrophils # 4.1 Sodium 137 Potassium 3.6 Chloride 100.3 Carbon Dioxide 24 Anion Gap 16 BUN 16 Creatinine 0.9 Estimated GFR > 60 BUN/Creatinine Ratio 18 Glucose 100 Calcium 10.5 H Total Bilirubin 0.60 AST 18 ALT 13 Alkaline Phosphatase 101 Total Protein 7.5 Albumin 4.9 Albumin/Globulin Ratio 1.9 Lipase 19 Labs 07/23/21 07/23/21 07/24/21 21:27 21:27 Unknown WBC 9.2 RBC 4.42 Hgb 14.0 Hct 40.8 MCV 92 MCH 32 MCHC 34 RDW 13.3 Plt Count 226 Lymph % (Auto) 48.8 H Mccreary % (Auto) 5.6 Eos % (Auto) 0.8 Baso % (Auto) Architect Manager Lymph # (Auto) 4.5 Mccreary # (Auto) 0.5 Eos # (Auto) 0.1 Baso # (Auto) 0.0 Seg Neutrophils % 44.4 Seg Neutrophils # 4.1 Sodium 137 Potassium 3.6 Chloride 100.3 Carbon Dioxide 24 Anion Gap 16 BUN 16 Creatinine 0.9 Estimated GFR > 60 BUN/Creatinine Ratio 18 Glucose 100 Calcium 10.5 H Total Bilirubin 0.60 AST 18 ALT 13 Alkaline Phosphatase 101 Total Protein 7.5 Albumin 4.9 Albumin/Globulin Ratio 1.9 Lipase 19 Urine Color Yellow Urine Turbidity Clear Urine pH 5.0 Ur Specific [place] 1.029 Urine Protein <15 mg/dl Urine Glucose (UA) Neg Urine Ketones Neg Urine Blood Neg Urine Nitrite Neg Urine Bilirubin Neg Urine Urobilinogen < 2.0 Ur Leukocyte Esterase Neg Urine WBC (Auto) < 1.0 Urine RBC (Auto) 8.0 Calcium Oxalate Crystal Few Urine Mucus 2+ - Radiology Data Radiology results: report reviewed, image reviewed ABDOMEN 1 VIEW INDICATION / CLINICAL INFORMATION: Abdominal pain, constipation. COMPARISON: None available. FINDINGS: TUBES / LINES: None. BOWEL GAS PATTERN: No significant abnormality. There is an expected amount of stool along the colon. FREE AIR / EXTRALUMINAL GAS: None seen. ADDITIONAL FINDINGS: Moderate thoracolumbar spondylosis is noted with mild degenerative changes throughout the pelvis. IMPRESSION: No acute findings to explain the patient's complaints. Signer Name: Ronni Love MD Signed: 07/23/2021 11:18 PM Workstation Name: [id number] Transcribed By: MN Dictated By: Ronni Love MD Electronically Authenticated By: Ronni Love MD Signed Date/Time: 07/23/212317 DD/ 14 TD/TT: - Medical Decision Making Labs noted normal UA normal KUB consistent with mild constipation plan DC to home, continue to hydrate as directed. MiraLAX and Dulcolax suppositories as needed. Follow-up with your doctor in 2 to 3 days. Patient verbalized agreement and understanding of discharge plan. Patient DC'd home in stable condition at this time. Patient has tolerated p.o. challenge there is no nausea no vomiting no fever or chills. Patient is alert oriented x3 amatory with steady gait in no acute distress at this time. Critical care attestation.: If time is entered above; I have spent that time in minutes in the direct care of this critically ill patient, excluding procedure time. ED Disposition Clinical Impression: Constipation Qualifiers: Constipation type: unspecified constipation type Qualified Code(s): K59.00 - Constipation, unspecified Abdominal pain Qualifiers: Abdominal location: unspecified location Qualified Code(s): R10.9 - Unspecified abdominal pain Disposition: 01 HOME / SELF CARE / HOMELESS Is pt being admited?: No Does the pt Need Aspirin: No Condition: Stable Instructions: Constipation, Adult, Abdominal Pain (ED) Additional Instructions: Take medication as prescribed, follow-up with your doctor in 2 to 3 days. Return to emergency department should symptoms worsen. Prescriptions: bisacodyL [Dulcolax suppos] 10 mg RI QDAY PRN #5 supp.rect PRN Reason: Constipation polyethylene glycoL 3350 [Miralax 3350] 17 gm PO BID PRN #14 packet PRN Reason: Constipation Referrals: CARLOS KAUFFMAN MD [Primary Care Provider] - 3-5 Days Time of Disposition: 01:50
[2021-07-23 22:14] LABS: Eosinophils # (Auto) 0.1 K/mm3 (0.0-0.4); Eosinophils % (Auto) 0.8 % (0.0-4.3); Hematocrit 40.8 % (30.3-42.9); Lymphocytes # (Auto) 4.5 K/mm3 (1.2-5.4); Lymphocytes % (Auto) 48.8 % (13.4-35.0); Mean Corpuscular HGB Conc 34 % (30-34); Mean Corpuscular Volume 92 fl (79-97); Monocytes # (Auto) 0.5 K/mm3 (0.0-0.8); Monocytes % (Auto) 5.6 % (0.0-7.3); Platelet Count 226 K/mm3 (140-440); Red Blood Count 4.42 M/mm3 (3.65-5.03); Red Cell Distribution Width 13.3 % (13.2-15.2)
[2021-07-23 22:16] LABS: Alanine Aminotransferase 13 units/L (7-56); Albumin 4.9 g/dL (3.9-5); BUN/Creatinine Ratio 18; Blood Urea Nitrogen 16 mg/dL (7-17); Calcium 10.5 mg/dL (8.4-10.2); Hemolysis Index 6
--- NOTE | 2021-07-23 23:22 | XRay Report ---
ABDOMEN 1 VIEW INDICATION / CLINICAL INFORMATION: Abdominal pain, constipation. COMPARISON: None available. FINDINGS: TUBES / LINES: None. BOWEL GAS PATTERN: No significant abnormality. There is an expected amount of stool along the colon. FREE AIR / EXTRALUMINAL GAS: None seen. ADDITIONAL FINDINGS: Moderate thoracolumbar spondylosis is noted with mild degenerative changes throu ghout the pelvis. IMPRESSION: No acute findings to explain the patient's complaints. Signer Name: Ronni Love MD Signed: 07/23/2021 11:18 PM Workstation Name: [id number]
[2021-07-24 01:31] LABS: Bilirubin,Urine NEG (Negative); Blood,Urine NEG (Negative); Calcium Oxalate Crystals,Urine FEW; Color,Urine Yellow (Yellow); Mucus,Urine 2+ /HPF; Protein,Urine <15 mg/dL mg/dL (Negative); Urobilinogen,Urine < 2.0 mg/dL (<2.0)
[2021-07-24 01:34] LABS: WBC,Urine < 1.0 /HPF (0.0-6.0)
[2021-07-24 02:15] VITALS: BP 152/63
== END 2021-07-24 02:15 | disposition home or self-care (01) ==
LOC: ED 17:38
DX: K59.00 Constipation, unspecified (principal); R10.9 Unspecified abdominal pain; F17.200 Nicotine dependence, unspecified, uncomplicated; Z88.5 Allergy status to narcotic agent; Z88.6 Allergy status to analgesic agent
CPT/HCPCS: 36415; 74018; 80053; 81001; 83690; 85025; 96361; 96374; 99284; J2405; J7030

== ENCOUNTER 2021-10-01 08:17 | Outpatient (CLI) | payer MEDICARE ==
--- NOTE | 2021-10-01 11:23 | Nuclear Medicine Report ---
HIDA SCAN INDICATION: K80.20. Right upper quadrant pain. COMPARISON: No relevant comparison at this facility TECHNIQUE: 5.5 mCi of Tc-99m: Tach was injected IV per protocol. 8 oz. of ensure was also given. M ultiple planar images in the region of the liver were then obtained. FINDINGS: There is prompt radiotracer uptake identified within the liver. The common bile duct was vi sualized at 20 min. The gallbladder was visualized at 30 min. There is normal GI excretion. The gall bladder ejection fraction was measured at 83 % (35% or greater is considered normal). IMPRESSION: No evidence of biliary obstruction. Normal gallbladder ejection fraction. Signer Name: Loi Hooper Jr, MD Signed: 10/01/2021 11:15 AM Workstation Name: [id number]
== END 2021-10-01 08:18 | disposition home or self-care (01) ==
LOC: NM 08:17
PROVIDERS: ATTEND Internal Medicine Gastroenterology
DX: K80.20 Calculus of gallbladder without cholecystitis without obstruction (principal)
CPT/HCPCS: 78227; A9537